=== PATIENT | female | born 1955 | race Caucasian/White ===

== ENCOUNTER 2025-05-07 10:58 | Emergency (ER) | payer MEDICARE, SELFPAY ==
[2025-05-07 11:08] VITALS: BP 140/80; PULSE 79; TEMP 36.3; O2SAT 99; BMI 17.1
--- NOTE | 2025-05-07 11:27 | ED.GENADUL1 ---
HPI HPI - General Adult General Chief complaint: Fall Stated complaint: R LEG PAIN, R LEG LACERATION Time Seen by Provider: 05/07/25 11:14 Source: patient Mode of arrival: walk-in Limitations: no limitations History of Present Illness HPI narrative: 70-year-old female presents for pain to her right lateral rib area. Yesterday she fell and hit this area. It hurts when she moves. No other injury was sustained at that time. She did not hit her head. Separately she sustained an abrasion to her right lower leg on her dog's collar. It has been many years since she has had a tetanus shot but is refusing a tetanus update. Related Data Allergies Allergy/AdvReac Type Severity Reaction Status Date / Time lisinopril Allergy Unknown PAIN Verified 05/07/25 11:07 Review of Systems ROS Narrative A ten point review of systems is negative except as noted above. PFSH PFSH Social History Little interest or pleasure in doing things: not at all Feeling down, depressed, or hopeless: not at all Exam Narrative Exam Narrative: Nurses note and vital signs reviewed and patient is not hypoxic. General: The patient appears well and in no apparent distress. Patient is resting comfortably on cart. Skin: Warm, dry, no pallor noted. There is no rash noted. Head: Normocephalic, atraumatic Eye: Normal conjunctiva, no drainage Ears, Nose, Mouth, and Throat: oral mucosa is moist. Nares patent. Cardiovascular: Regular Rate and Rhythm Respiratory: Patient is in no distress, no accessory muscle use, lungs are clear to auscultation, no wheezing, rales or rhonchi Back: She has tenderness to palpation of the right posterior lateral rib area, particularly inferiorly. There is no abrasion or bruising or crepitus. GI: Soft and nontender Musculoskeletal: She has an abrasion to her right lower leg anteriorly, distally. There is small hematoma present as well. Neurological: Awake and alert Psychiatric: Cooperative, sometimes gives rambling answers Constitutional Vital Signs, click to edit/add: Last Vital Signs Temp 97.3 F L 05/07/25 11:08 Pulse 79 05/07/25 11:08 Resp 16 05/07/25 11:08 BP 140/80 05/07/25 11:08 Pulse Ox 99 05/07/25 11:08 Course Vital Signs Vital signs: Vital Signs Temperature 97.3 F L 05/07/25 11:08 Pulse Rate 79 05/07/25 11:08 Respiratory Rate 16 05/07/25 11:08 Blood Pressure 140/80 05/07/25 11:08 Pulse Oximetry 99 05/07/25 11:08 Temperature 97.3 F L 05/07/25 11:08 Pulse Rate 79 05/07/25 11:08 Respiratory Rate 16 05/07/25 11:08 Blood Pressure 140/80 05/07/25 11:08 Pulse Oximetry 99 05/07/25 11:08 Medical Decision Making MDM Narrative Medical decision making narrative: Rib x-rays are negative. Tetanus status is updated, her friend was able to change her mind into getting the tetanus shot. Treatment diagnosis and follow-up were discussed with the patient and her friend. Differential Diagnosis Differential Diagnosis: Rib contusion, rib fracture, pneumothorax Imaging Data Right rib x-rays: Radiologist's impression: ITS Impressions Ribs X-Ray 05/07/25 11:45 IMPRESSION: NO DEFINITE ACUTE FINDINGS. Impression dictated by: Amarilis Raymundo M.D. 05/07/2025 11:55 AM Dictation Location: [place] [address] Electronically authenticated by: [id number] Y Date: 05/07/2025 11:55 Discharge Plan Discharge Chief Complaint: Fall Clinical Impression: Rib contusion, Abrasion of leg Patient Disposition: Home, Self-Care Time of Disposition Decision: 12:06 Condition: Good Mode of Transportation: Private Vehicle Print Language: Canadian Instructions: Abrasion (ED), Chest Contusion (ED) Referrals: Physician,Non-Staff, MD [Primary Care Provider] - 1 week
--- NOTE | 2025-05-07 11:45 | XR_ITS ---
The [address] [address] Patient Name: MORRIS OCHOA MRN: [id number] date: 1955 Sex: F Assigned Patient Location: ER Current Patient Location: ED.MAIN Accession/Order Number: [id number] Exam Date: 05/07/2025 11:50 Report Date: 05/07/2025 11:55 At the request of: CLARISSA WALKER MD Procedure: XR ribs RT min 3V w CXR1V PA CHEST WITH RIGHT RIBS: CLINICAL HISTORY: Right lateral rib pain after falling yesterday COMPARISON: None The chest film shows mild hyperinflation. No consolidation, effusion or pneumothorax is seen. There is minor apical scarring. Nipple shadows are visualized. The cardiac, hilar and mediastinal silhouettes are within normal limits. No vascular congestion is seen. The bony structures are osteopenic. There is reverse S-shaped scoliotic curvature and endplate spurring. AP and both oblique views of the right ribs show no obvious acute displaced fractures or bony destruction. XR/XR ribs RT min 3V w CXR1V IMPRESSION: NO DEFINITE ACUTE FINDINGS. Impression dictated by: Amarilis Raymundo M.D. 05/07/2025 11:55 AM Dictation Location: [place] [address] Electronically authenticated by: [id number] Y Date: 05/07/2025 11:55
[2025-05-07] MEDS: BACITRACIN 0.9 GM PACKET 1 PACKET TOPICAL (11:50)
[2025-05-07] MEDS: DIPHTH,PERTUSS(ACELL),TET VAC 0.5 ML SYRINGE IM (12:12)
== END 2025-05-07 12:17 | disposition home or self-care (01) ==
PROVIDERS: Emergency Provider Emergency Medicine
DX: S20.211A Contusion of right front wall of thorax, initial encounter (principal); X58.XXXA Exposure to other specified factors, initial encounter; S80.811A Abrasion, right lower leg, initial encounter
CPT/HCPCS: 71101; 90471; 90715; 99283